=== PATIENT | male | born 1990 | race Two or more races ===

== ENCOUNTER → 2017-03-14 | Day surgery (SDC) | payer BC ==
[~2017-03-14] VITALS: Ht 182.9 cm; Wt 64.0 kg
[2017-03-14] VITALS (9 sets, daily range): BP systolic 123–132; BP diastolic 4–79
[~2017-03-14] MED LIST: Acetaminophen (Non formulary) 100 ML IV ONE; Alfentanil 2ml Inj ONE; Atropine Inj 1mg/10ml Syr IV PRN; Bacitracin Oint 15gm Tube TOPIC ONE; Betadine 10% Oint 15gm TOPIC ONE; Cocaine HCl 4% 4ml vial TOPIC ONE; Dexamethasone 4mg/ml vial ONE; DiphenhydrAMINE 50mg/ml Inj IVP PRN; Glycopyrrolate 0.2mg/ml 1ml Vial ONE; Hydromorphone 0.5mg/0.5ml inj IVP PRN; Kenalog-40 1ml Vial ONE; Ketorolac 30mg Inj IV PRN; LORazepam Inj 2mg/ml 1ml IV PRN; LR 1000ml 1,000 ML IVLG SCH; LR 1000ml ONE; Labetalol 5mg/ml 20ml vial IV PRN; Lidocaine 1% 10mg/ml/EPI 0.01mg/ml 50ml INJ ONE; Lidocaine 1% MPF 10mg/ml 5ml ONE; Metoclopramide 10mg/2ml Inj IVP PRN; Midazolam 2mg/2ml Inj IVP PRN; NS Irrig 1000ml ONE; Neostigmine 1mg/ml 10ml Inj ONE; Norco 5mg/325mg tab ORAL PRN; Norco 7.5mg/325mg tab ORAL PRN; Oxymetazoline 0.05% Na Spray 30ml NASAL ONE; PREVACID30 MG ORAL; Propofol 1,000mg/ 100ml btl IV ONE; Sterile Water Irrig 1000ml IRRIG ONE; VENTOLIN HFA18 GM INH; Zemuron 50mg/5ml Inj IV ONE; ceFAZolin 1gm in D5W 55ml IVP ONE; fentaNYL 100 mcg/2 mL IV ONE; fentaNYL 100 mcg/2 mL IV PRN; oxyCODONE HCL/Acetaminophen 5/325mg ORAL PRN
--- NOTE | 2017-03-14 08:30 | Immediate Post-Op Evaluation ---
Immediate Post-Op Evalulation Immediate Post-Op Evalulation Procedure: Septoplasty, SMR Turbinates Date of Evaluation: Mar 14, 2017 Time of Evaluation: 14:28 IV Fluids: 1000 LR Blood Products: 0 Estimated Blood Loss: 40 Urinary Output: 0 Blood Pressure Systolic: 130 Blood Pressure Diastolic: 64 Pulse Rate: 82 Respiratory Rate: 16 O2 Sat by Pulse Oximetry: 100 Temperature (Fahrenheit): 98.4 Pain Score (1-10): 1 Nausea: No Vomiting: No Complications 0 Patient Status: awake, reacts, patent, extubated, none Hydration Status: adequate Dru Gram Ancef IV Given Within 1 Hr of Incision: Yes Time Given: 10:36 Sam Murray MD Mar 14, 2017 08:30
--- NOTE | 2017-03-14 09:48 | Pre-Procedure Note/Attestation ---
Pre-Procedure Note/Attestation Complete Prior to Procedure Planned Procedure: not applicable Procedure Narrative: nasal obstruction unresponsive to medication Indications for Procedure Pre-Operative Diagnosis: septal deviation, bilateral inferior turbinectomies with intramural coagulation , repair of obstructing nasal deformity wtih grafting Attestation I attest that I discussed the nature of the procedure; its benefits; risks and complications; and alternatives (and the risks and benefits of such alternatives ), prior to the procedure, with the patient (or the patient's legal special service representative). I attest that, if there was a reasonable possibility of needing a blood transfusion, the patient (or the patient's legal special service representative) was given the [place] [employer] [facility] [employer] [facility] standardized written summary, pursuant to the [place] Blood Safety Act ([place] Health and Safety Code # 1645, as amended). I attest that I re-evaluated the patient just prior to the surgery and that there has been no change in the patient's H&P, except as documented below: EMILE KERR Mar 14, 2017 09:48
--- NOTE | 2017-03-14 11:26 | Anethesia Preoperative Eval ---
Anesthesia Pre-op PMH/ROS General Date of Evaluation: Mar 14, 2017 Time of Evaluation: 10:28 Anesthesiologist: Terri ASA Score: ASA 2 Mallampati Score Class I : Soft palate, uvula, fauces, pillars visible Class II: Soft palate, uvula, fauces visible Class III: Soft palate, base of uvula visible Class IV: Only hard plate visible Mallampati Classification: Class I Surgeon: Varun Diagnosis: Deviated Septum Surgical Procedure: Septoplasty, SMR Turbinates Anesthesia History: none Family History: no anesthesia problems Allergies: Coded Allergies: No Known Allergies (Unverified , 03/13/17) Medications: see eMAR Past Medical History Pulmonary: Reports: asthma Anesthesia Pre-op Phys. Exam Physician Exam Last Vital Signs Date Time Temp Pulse Resp B/P (MAP) Pulse Ox O2 Delivery O2 Flow Rate FiO2 03/14/17 08:52 97.9 78 18 131/79 98 Room Air Constitutional: NAD Neurologic: CN 2-12 intact Cardiovascular: RRR Respiratory: CTA Gastrointestinal: S/NT/ND Airway Exam Mallampati Score: Class I MO: full ROM: full Teeth: intact Anesthesia Pre-op A/P Risk Assessment & Plan Assessment: ASA 2 Plan: GA, BIS, GlideScope Status Change Before Surgery: No Pre-Antibiotics Dru Gram Ancef IV Given Within 1 Hr of Incision: Yes Time Given: 10:36 Sam Murray MD Mar 14, 2017 11:26
--- NOTE | 2017-03-14 11:32 | 48 Hour Post Anesthesia Eval ---
Post Anesthesia Evaluation Procedure: Septoplasty, SMR Turbinates Date of Evaluation: Mar 14, 2017 Time of Evaluation: 16:38 Blood Pressure Systolic: 132 0: 71 Pulse Rate: 67 Respiratory Rate: 18 Temperature (Fahrenheit): 98.6 O2 Sat by Pulse Oximetry: 100 Airway: patent Nausea: No Vomiting: No Pain Intensity: 0 Hydration Status: adequate Cardiopulmonary Status: Stable Mental Status/LOC: patient returned to baseline Follow-up Care/Observations: 0 Post-Anesthesia Complications: 0 Follow-up care needed: ready to discharge Sam Murray MD Mar 14, 2017 11:32
--- NOTE | 2017-03-14 14:17 | Brief Operative Note ---
Immediate Post Operative Note Operative Note Pre-op Diagnosis: septal deviation, bilateral inferior turbinectomies with intramural coagulation , repair of obstructing nasal deformity wtih grafting Procedure: septoplasty, bilateral inferior turbinectomies with intramural coagulation, repair of obstructing nasal deformity Post-op Diagnosis: same as pre-op Surgeon: Freddy Kerr M.D. Anesthesiologist: Bear Anesthesia: general Specimen: yes - septum Complications: none Condition: stable Fluids: ringer lactate Estimated Blood Loss: minimal Drains: none Packing: telfa Implant(s) used?: No FREDDY KERR Mar 14, 2017 14:17
--- NOTE | 2017-03-17 02:15 | Operative Note - Dictated ---
DATE OF OPERATION: 03/14/2017 SURGEON: Freddy Bond M.D. ANESTHESIOLOGIST: Dr. Murray. ANESTHESIA: General. PREOPERATIVE DIAGNOSES: 1. Septal deviation. 2. Bilateral hypertrophied inferior turbinates. 3. 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 POSTOPERATIVE DIAGNOSES: 1. Septal deviation. 2. Bilateral hypertrophied inferior turbinates. 3. 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 PROCEDURES: 1. Septoplasty. 2. Bilateral inferior turbinectomies with intramural coagulation. 3. Repair of obstructing nasal deformity and bilateral collapsed internal valve. INDICATION FOR SURGERY: The patient is a 26-year-old male, who complains of left much greater than right nasal airway obstruction, unresponsive to medication. His examination revealed a tension septum externally. Intranasal examination revealed a severe left septal deviation with a septum being convex to the left as well as dislocated off a huge left maxillary crest spur. He was also noted to have tremendous hypertrophy of both inferior turbinates and collapse of the internal valves secondary to the tension septum. He is now being brought to the operating room for surgical repair. PROCEDURE AND FINDINGS: The patient was brought to the operating room while premedicated and having received preoperative antibiotics. He was then placed in supine position on the operating room table. After the patient underwent satisfactory endotracheal intubation, he was given IV sedation. The nasal cavity was then sprayed with 0.25% Gumaro-Synephrine. Sterile Q-tips saturated with Betadine were used to sterilize the intranasal cavity. Approximately 20 mL of 1% Xylocaine with 1:100,000 epinephrine were used to inject the nasal and septal frameworks. Less than 200 mg of cocaine were used on intranasal packing. It was of note because of the patient's severe left septal deviation very little of the packing could be introduced into the left nasal cavity. Sterile scissors coated with [place] Jelly were then used to remove the nostril hairs and the patient was prepped and draped in usual sterile fashion. After a period of vasoconstriction, the packing was removed. A #15 blade was used to make incision between the upper and lower lateral cartilage carried to the septal angle, then along the inferior aspect of the septum. Extensive undermining was then performed. Bilateral junction tunnels were then performed and the upper lateral cartilage was released from the septum. The septum was then taken down sharply. This was taken down until the internal valves were alleviated of the obstructing position. Once this was accomplished, my attention was turned to the internal aspect of nasal obstruction. With #15 blade, the left inferior septal incision was completed and a left mucoperichondrial and mucoperiosteal flap was elevated running in significant scar tissue along the posterior aspect of the septum and maxillary crest. Eventually, the mucoperichondrium and mucoperiosteum were able to be elevated. An incision was made between the cartilage and bony septum and a right mucoperiosteal flap was then elevated. That portion of overriding and obstructing perpendicular plate of the ethmoid and vomer bone were incised in strips, from the remaining attachment and removed from the field of operation. A similar procedure was performed on the cartilaginous septum maintaining good anterior and inferior support. A mallet and chisel were used to remove a huge obstructing left maxillary crest spur that was budding up against the lateral nasal wall and the inferior turbinate. Re-examination now revealed septum to be in more midline position for breathing. Bipolar intramural coagulation of both inferior turbinates was then performed. An incision was made in the undersurface of both the inferior turbinates and mucosa stripped from the underlying bone. The inferior turbinates were then outfractured and small piece of bone removed from the pocket. Re-examination now revealed the patient to have a good bilateral nasal airway. All blood was suctioned from the nose and nasopharynx area. A 4-0 plain was used to close the septal incision as well as to splint the septum and close the between the cartilage incisions at areas which had been previously crosshatched. Telfa coated with Betadine ointment was then secured intranasally with a suture of 3-0 silk. A sterile dressing consisting of paper, adhesive tape, and a cast were secured in place as a pressure dressing and procedure was terminated. The patient tolerated procedure well and left the operating room in satisfactory condition. Estimated blood loss was 30 mL. Sponge and needle count were correct. Freddy Bond M.D. DR: WING JOB#: [id number] CC: [email or web address]
== END | disposition home or self-care (01) ==
LOC: SUR 08:06
DX: J34.2 Deviated nasal septum (principal); J34.3 Hypertrophy of nasal turbinates; J34.89 Other specified disorders of nose and nasal sinuses
CPT/HCPCS: 30140; 30520; J1100; J2250; J2405; J2704; J2710; J3010; J3301; J3490; J7120; 94003; 94150